=== PATIENT | female | born 1985 | race Caucasian/White ===

== ENCOUNTER 2018-10-21 08:44 | Emergency (ER) | payer OTHER, SELFPAY ==
--- NOTE | 2018-10-21 08:59 | W.ED.GENAD ---
Discharge Plan Disposition Patient Disposition: HOME Condition: Stable Discharge Details Chief Complaint: Sorethroat Clinical Impression: Pharyngitis ED Provider: Patricia Clement Home Meds and New Rx's Prescriptions: No Action No Known Home Meds RF: 0 Discharge Instructions Instructions: Pharyngitis (ED) Additional Instructions: Gargle with salt water. Use sore throat lozenges to help with pain. Alternate Tylenol and Motrin as needed and directed for pain. Follow-up with the primary care doctor in 1 week for reevaluation as needed. Return immediately to the emergency department any worsening or new concerning symptoms. Discharge Data Discharge Physician: Patricia Clement Medical Decision Making 32-year-old female presents with sore throat for the past 2 days. No known fever. Recently treated with penicillin for strep pharyngitis 3 weeks ago. Vitals within normal limits. Normal ENT exam. Patient appears nontoxic. No trismus, submandibular swelling or lymphadenopathy. Rapid strep negative. Discussed with patient that her symptoms can be due to viral pharyngitis, allergic rhinitis, or URI/sinus drainage. Instructed to alternate Tylenol Motrin, gargle with salt water, sore throat lozenges. She was informed that she will be notified if throat culture positive. She is instructed to follow with primary care doctor for reevaluation and return here anytime if worse. She is visiting from [place] and staying here for the next week. HPI General Mode of arrival: ambulatory. Date/Time Provider Initiated Documentation: 10/21/18 08:47. Limitations to Documentation: no limitations. Information obtained by: patient. HPI Narrative: Patient is a 32-year-old female who presents with sore throat for the past 2 days. Patient states she was treated with penicillin for strep throat 3 weeks ago. States her symptoms resolved 10 days ago. She states she did receive the flu shot this year. She states her symptoms started with postnasal drip 2 days ago, which then resolved and now she only has a sore throat. She denies any known fever, cough, runny nose. She is able to swallow liquids and solids. She states she is still nursing her 8-month-old at home. Related Data Home Medications Medication Instructions Recorded Confirmed Unknown [No Known Home Meds] 10/21/18 10/21/18 Allergies Allergy/AdvReac Type Severity Reaction Status Date / Time No Known Allergies Allergy Unverified 10/21/18 09:06 Review of Systems Review of Systems All systems reviewed & are unremarkable except as noted in HPI and below Constitutional Reports as per HPI, Denies chills and Denies fever(s) Eyes Denies blurry vision ENT Denies dizziness, Reports sore throat and Denies throat swelling Cardiovascular Denies chest pain and Denies dyspnea Respiratory Denies cough and Denies dyspnea Gastrointestinal Denies abdominal pain, Denies diarrhea and Denies vomiting Genitourinary Denies hematuria and Denies dysuria Musculoskeletal Denies back pain and Denies numbness Integumentary/Breasts Denies lesions and Denies rash Neurologic Denies dizziness, Denies focal weakness and Denies numbness Allergic/Immunologic Denies throat swelling [facility] Medical History No significant past medical history (Acute) Surgical History History of knee surgery (Acute) S/P wrist surgery (Acute) H/O section (Chronic) Social History Smoking and Tabacco status: Never alcohol intake: never substance use type: does not use Exam Const General: cooperative and healthy appearing Orientation: alert and awake HENMT Head: normal to inspection Ears: hearing grossly normal bilaterally, external ears normal and TM's normal bilaterally General nose exam: external nose normal Face and sinus: normal facial exam and sinuses nontender Mouth: oral mucosae normal Teeth and gingiva: dentition normal Throat: posterior oropharynx normal, tonsils normal, uvula midline, no peritonsillar masses and no uvular edema Eyes General: appearance normal, both eyes and all related structures Eyelids: eyelids normal EOM: EOM intact bilaterally Neck Neck: normal visual inspection Lymphatic: no lymphadenopathy noted Chest Chest: normal inspection of the chest Resp Effort & Inspection: normal respiratory effort and able to speak in complete sentences Auscultation: clear to auscultation bilaterally Cardio Rate: regular rate Rhythm: regular rhythm GI Inspection: normal to inspection Palpation: soft, not firm, no guarding, no hepatosplenomegaly, no masses and nontender Auscultation: normal bowel sounds Skin General skin exam: no rashes or lesions noted Neuro General: alert and awake Cognition: normal cognition Speech: speech normal Gait: normal gait Motor: muscle tone normal throughout Sensory Exam: no sensory deficits noted Extrem General: normal to inspection, full ROM and normal capillary refill Psych Appearance: grossly normal Mental Status: mental status grossly normal Speech and Movement: speech and movement normal Affect: normal affect Thought Process: normal
[2018-10-21 09:03] VITALS: BP 126/74; PULSE 77; RESP 16; TEMP 36.8; O2SAT 97
== END 2018-10-21 10:35 | disposition home or self-care (01) ==
LOC: ER 10:18
PROVIDERS: Emergency Provider Physician Assistant
DX: J02.9 Acute pharyngitis, unspecified (principal)
CPT/HCPCS: 87880; 99282; 87081